=== PATIENT | male | born 1980 | race Caucasian/White ===

== ENCOUNTER → 2018-08-20 | Outpatient (CLI) | payer OTHER ==
[2014-11-01 12:31] VITALS: BP 125/77
[~2018-08-20] MED LIST: HYDR1TAB10 PO
[2018-08-20 09:25] LABS: BASO # 0.1 x10^3/uL (0.0-0.2); BASO % 1 % (0-3); EOS # 0.2 x10^3/uL (0.0-0.7); EOS % 2 % (0-3); HEMATOCRIT 47.7 % (39.0-53.0); HEMOGLOBIN 16.5 g/dL (13.0-17.5); LYMPH # 3.2 x10^3/uL (1.0-4.8); LYMPH % 35 % (24-48); MEAN CORPUSCULAR HEMOGLOBIN 30 pg (25-35); MEAN CORPUSCULAR HGB CONC 35 g/dL (31-37); MEAN CORPUSCULAR VOLUME 86 fL (79-100); MONO # 0.8 x10^3/uL (0.0-1.1); MONO % 9 % (0-9); NEUT # 4.9 x10^3uL (1.8-7.7); NEUT % 53 % (31-73); PLATELET COUNT 300 x10^3/uL (140-400); RED BLOOD COUNT 5.56 x10^6/uL (4.30-5.70); RED CELL DISTRIBUTION WIDTH 13.5 % (11.5-14.5); WHITE BLOOD COUNT 9.3 x10^3/uL (4.0-11.0)
[2018-08-20 09:31] LABS: ALBUMIN 3.9 g/dL (3.4-5.0); CALCIUM 9.2 mg/dL (8.5-10.1); GFR 83.2; TOTAL BILIRUBIN 0.9 mg/dL (0.2-1.0)
[2018-08-20 13:12] LABS: FREE T4 1.25 ng/dL (0.76-1.46); THYROID STIM HORMONE (TSH) 1.408 uIU/mL (0.358-3.740)
== END | disposition home or self-care (01) ==
LOC: LAB 08:38
PROVIDERS: ATTEND Family Medicine
DX: F32.0 Major depressive disorder, single episode, mild (principal); R10.13 Epigastric pain
CPT/HCPCS: 36415; 80053; 84439; 84443; 85025

== ENCOUNTER 2019-05-04 16:46 | Emergency (ER) | payer OTHER ==
[~2019-05-04] VITALS: Ht 182.9 cm; Wt 142.5 kg
[2019-05-04] MEDS ORDERED: ONDANSETRON PF 4 MG/2 ML VIAL. ONE (17:08)
[2019-05-04] MEDS ORDERED: IV NORMAL SALINE 1,000ML 1,000 ML IV ONE (17:15)
[2019-05-04] MEDS ORDERED: ONDANSETRON PF 4 MG/2 ML VIAL. IVP ONE (17:15)
[2019-05-04 17:46] LABS: BASO # 0.1 x10^3/uL (0.0-0.2); BASO % 1 % (0-3); EOS # 0.3 x10^3/uL (0.0-0.7); EOS % 4 % (0-3); HEMATOCRIT 47.2 % (39.0-53.0); HEMOGLOBIN 16.1 g/dL (13.0-17.5); LYMPH # 2.7 x10^3/uL (1.0-4.8); LYMPH % 34 % (24-48); MEAN CORPUSCULAR HEMOGLOBIN 30 pg (25-35); MEAN CORPUSCULAR HGB CONC 34 g/dL (31-37); MEAN CORPUSCULAR VOLUME 88 fL (79-100); MONO % 12 % (0-9); NEUT # 3.9 x10^3uL (1.8-7.7); NEUT % 50 % (31-73); PLATELET COUNT 278 x10^3/uL (140-400); RED BLOOD COUNT 5.37 x10^6/uL (4.30-5.70); RED CELL DISTRIBUTION WIDTH 13.7 % (11.5-14.5); WHITE BLOOD COUNT 7.9 x10^3/uL (4.0-11.0)
[2019-05-04 17:53] LABS: ALBUMIN 3.8 g/dL (3.4-5.0); ALBUMIN/GLOBULIN RATIO 0.9 (1.0-1.7); CALCIUM 9.3 mg/dL (8.5-10.1); GFR 83.2; POTASSIUM 3.8 mmol/L (3.5-5.1); TOTAL PROTEIN 7.9 g/dL (6.4-8.2)
--- NOTE | 2019-05-04 17:53 | PHYS DOC ---
Past History Past Medical History: Anxiety, Cancer, Depression, Other Additional Past Medical Histor: tumor in lung; insomia (CAROL URIBE DO) Past Surgical History: Other Additional Past Surgical Histo: ulvalaplasty for sleep apnea; thoracotomy right lung removed (CAROL URIBE DO) Alcohol Use: None Drug Use: None (CAROL URIBE DO) Smoking: Non-smoker (ROBLES HOLLAND DO) Adult General Chief Complaint Chief Complaint: NAUSEA/VOMITING/DIARRHEA HPI HPI 38-year-old male presents with nausea, vomiting, and diarrhea. He has had the symptoms for about 5 days. For the last year, the patient has had intermittent vomiting and diarrhea. He had an EGD done that did not show any abnormalities. It was determined that this could be related to stress. He usually has trouble for a few days and then it goes away. He presents tonight because he has also had chills. He has not measured a fever. He was also having significant cough until today that was productive of greenish sputum. 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 This was several years ago. His stools are very watery. He has generalized abdominal pain that is worse in the right lower quadrant. No history of abdominal surgery. (CAROL URIBE DO) Review of Systems Review of Systems Constitutional: Chills[] Eyes: Denies change in visual acuity, redness, or eye pain [] HENT: Denies nasal congestion or sore throat [] Respiratory: Denies cough or shortness of breath [] Cardiovascular: No additional information not addressed in HPI [] GI: Right lower quadrant abdominal pain, nausea, vomiting, diarrhea [] : Denies dysuria or hematuria [] Musculoskeletal: Denies back pain or joint pain [] Integument: Denies rash or skin lesions [] Neurologic: Denies headache, focal weakness or sensory changes [] Endocrine: Denies polyuria or polydipsia [] All other systems were reviewed and found to be within normal limits, except as documented in this note. (CAROL URIBE DO) Current Medications Current Medications Current Medications Medications (Trade) Dose Ordered Sig/Tim Start Time Stop Time Status Last Admin Dose Admin Ondansetron HCl (Zofran) 4 mg STK-MED ONCE 05/04/19 17:08 05/04/19 17:09 DC Sodium Chloride 1,000 ml @ 1,000 mls/hr 1X ONCE 05/04/19 17:15 05/04/19 18:14 05/04/19 17:17 1,000 MLS/HR (CAROL URIBE DO) Allergies Allergies Allergies Coded Allergies Type Severity Reaction Last Updated Verified acetaminophen Allergy Intermediate gi complaints 05/04/19 No oxycodone Allergy Intermediate gi complaints 05/04/19 No (CAROL URIBE DO) Physical Exam Physical Exam Constitutional: Well developed, obese, well nourished, no acute distress, non-toxic appearance. [] HENT: Normocephalic, atraumatic, bilateral external ears normal, oropharynx moist, no oral exudates, nose normal. [] Eyes: PERRLA, EOMI, conjunctiva normal, no discharge. [] Neck: Normal range of motion, no tenderness, supple, no stridor. [] Cardiovascular:Heart rate regular rhythm, no murmur [] Lungs & Thorax: Bilateral breath sounds clear to auscultation [] Abdomen: Bowel sounds normal, soft, moderate right lower quadrant tenderness with guarding, no masses, no pulsatile masses. [] Skin: Warm, dry, no erythema, no rash. [] Back: No tenderness, no CVA tenderness. [] Extremities: No tenderness, no cyanosis, no clubbing, ROM intact, no edema. [] Neurologic: Alert and oriented X 3, normal motor function, normal sensory function, no focal deficits noted. [] Psychologic: Affect normal, judgement normal, mood normal. [] (CAROL URIBE DO) Physical Exam Constitutional: Well developed, well nourished, no acute distress, non-toxic appearance HENT: Normocephalic, atraumatic, oropharynx moist Eyes: PERRL, EOMI, conjunctiva normal, no discharge Neck: Normal range of motion, no tenderness, supple, no meningeal signs Cardiovascular: Heart rate normal, regular rhythm Lungs & Thorax: Bilateral breath sounds diminished at bases R>L, no wheezing or rales Abdomen: Soft, no tenderness, no guarding/rebound tenderness/distention Skin: Warm, dry, no erythema, no rash Extremities: No tenderness, ROM intact, no edema Neurologic: Alert and oriented X 3, normal motor function, normal sensory function, no focal deficits noted Psychologic: Affect normal, judgement normal (HOLLAND,ROBLES R DO) Current Patient Data Vital Signs Vital Signs Date Time Temp Pulse Resp B/P (MAP) Pulse Ox O2 Delivery O2 Flow Rate FiO2 05/04/19 16:55 98.4 78 18 98 Room Air Lab Results Laboratory Tests Test 05/04/19 17:08 White Blood Count 7.9 x10^3/uL (4.0-11.0) Red Blood Count 5.37 x10^6/uL (4.30-5.70) Hemoglobin 16.1 g/dL (13.0-17.5) Hematocrit 47.2 % (39.0-53.0) Mean Corpuscular Volume 88 fL (79-100) Mean Corpuscular Hemoglobin 30 pg (25-35) Mean Corpuscular Hemoglobin Concent 34 g/dL (31-37) Red Cell Distribution Width 13.7 % (11.5-14.5) Platelet Count 278 x10^3/uL (140-400) Neutrophils (%) (Auto) 50 % (31-73) Lymphocytes (%) (Auto) 34 % (24-48) Monocytes (%) (Auto) 12 % (0-9) H Eosinophils (%) (Auto) 4 % (0-3) H Basophils (%) (Auto) 1 % (0-3) Neutrophils # (Auto) 3.9 x10^3uL (1.8-7.7) Lymphocytes # (Auto) 2.7 x10^3/uL (1.0-4.8) Monocytes # (Auto) 1.0 x10^3/uL (0.0-1.1) Eosinophils # (Auto) 0.3 x10^3/uL (0.0-0.7) Basophils # (Auto) 0.1 x10^3/uL (0.0-0.2) (CAROL URIBE DO) EKG EKG [] (CAROL URIBE DO) Radiology/Procedures Radiology/Procedures [] (CAROL URIBE DO) Radiology/Procedures PROCEDURE: CHEST PA & LATERAL Two-view chest dated 05/04/2019. No comparison available. Clinical data indication: Cough and fever for 5 days. FINDINGS: PA and lateral views obtained. Heart and mediastinal contours within normal limits. Elevation of right hemidiaphragm with surgical clips at the infrahilar region on the right. Mildly prominent linear markings at the perihilar regions. No consolidation or pleural effusion. No pneumothorax. IMPRESSION: 1. No evidence of focal pneumonia. 2. Prominent perihilar linear markings could be related to bronchial inflammatory process or scarring/atelectasis. 3. Status right lower lobectomy. Electronically signed by: Robles Fuentes MD (05/04/2019 6:45 PM) [facility] PROCEDURE: CT ABD PELV W/ IV CONTRST ONLY CT abdomen pelvis with contrast dated 05/04/2019. No comparison available. Clinical data indication: Right lower quadrant pain. TECHNIQUE: Contiguous axial imaging of the abdomen and pelvis performed after the administration of 75 cc Omnipaque 300. One or more of the following individualized dose reduction techniques were utilized for this examination: 1. Automated exposure control 2. Adjustment of the mA and/or kV according to patient size 3. Use of iterative reconstruction technique. FINDINGS: Limited images of lung bases show patchy airspace disease in the left lower lobe posterior medially. Evidence of prior right lower lobectomy with elevation of right hemidiaphragm. Heart size upper limits of normal. No pleural or pericardial effusion. Diffuse low-density of the liver, compatible with fatty infiltration. No apparent mass. Biliary tree normal in caliber. Gallbladder unremarkable. Spleen is normal in size. Pancreas, adrenal glands, gallbladder and kidneys are unremarkable. No hydronephrosis. Unopacified GI tract normal in caliber and contour. No focal bowel wall thickening. No inflammatory stranding in the mesentery. No ascites or lymphadenopathy. Abdominal aorta normal in caliber. Images of pelvis show nondistended urinary bladder. Prostate gland normal in size. No free fluid or lymphadenopathy. Bone windows show no acute findings. Multilevel spondylosis. IMPRESSION: 1. No acute abnormality of abdomen or pelvis. Normal appendix. 2. Subtle patchy airspace disease in the left lower lobe, suspicious for early pneumonia. Correlate clinically. 3. Mild fatty infiltration of the liver. Electronically signed by: Robles Fuentes MD (05/04/2019 6:49 PM) [facility] (ROBLES HOLLAND DO) Course & Med Decision Making Course & Med Decision Making Pertinent Labs and Imaging studies reviewed. (See chart for details) The patient's workup is pending. I'm signing the patient out at [address] Holland for further management and final disposition. [] (CAROL URIBE DO) Course & Med Decision Making Sign out received from Dr. Uribe for patient with abdominal pain and N/V. Also with history of cough. Patient pending CT imaging. Labs reviewed. Patient seen and evaluated by myself. CXR without acute process. CT abd/pelvis without surgical abnormality. Possible early pneumonia to LLL vs atelectasis. HENRY addressed. Symptomatic treatment provided. IVF hydration given. Patient stable for discharge with outpatient follow-up with PCP. Empiric antibiotic prescribed with instructions to watch and wait. Discussed findings a nd plan with patient and family, who acknowledge understanding and agreement. (ROBLES HOLLAND DO) Dragon Disclaimer Dragon Disclaimer This electronic medical record was generated, in whole or in part, using a voice recognition dictation system. (CAROL URIBE DO) Departure Departure: Impression: Primary Impression: Viral syndrome Additional Impressions: Headache Nausea vomiting and diarrhea Disposition: HOME, SELF-CARE Condition: STABLE Referrals: KIEL NUGENT MD (PCP) Patient Instructions: Diarrhea, [id number]-ol-[id number], Diet for Diarrhea, Adult, Headache, FAQs, Nausea and Vomiting, [id number], Viral Syndrome Additional Instructions: Hold antibiotics for 48 hours. If symptoms worsen or for fever > 100.3 F after 48 hours then start antibiotics as prescribed. Increase fluid hydration. Scripts Azithromycin (AZITHROMYCIN TABLET) 250 Mg Tablet 1 PKG PO UD for bronchitis, #6 TAB Take 2 tablets today and then one tablet every day thereafter for the next 4 days Prov: ROBLES HOLLAND DO 05/04/19 Butalb/Acetaminophen/Caffeine (JQLEEX-CAMMLAUH-SDXU 50-325-40) 1 Each Tablet 1 EACH PO Q6HRS PRN for HEADACHE, #14 TAB Prov: ROBLES HOLLAND DO 05/04/19 Ondansetron (ONDANSETRON ODT) 4 Mg Tab.rapdis 1 TAB PO PRN Q6-8HRS PRN for NAUSEA, #16 TAB Prov: ROBLES HOLLAND DO 05/04/19 Prednisone (PREDNISONE) 20 Mg Tablet 2 TAB PO DAILY for Bronchitis, #8 TAB Start this prescription tomorrow, 05/05/19 Prov: ROBLES HOLLAND DO 05/04/19 Problem Qualifiers Additional Impressions: Headache Headache type: unspecified Headache chronicity pattern: acute headache Intractability: not intractable Qualified Codes: R51 - Headache CAROL URIBE DO May 04, 2019 17:53 ROBLES HOLLAND DO May 04, 2019 18:56
[2019-05-04] MEDS ORDERED: IOHEXOL 300 MG/ML 75 ML VIAL. IV ONE (18:00)
--- NOTE | 2019-05-04 18:48 | RAD ---
Two-view chest dated 05/04/2019. No comparison available. Clinical data indication: Cough and fever for 5 days. FINDINGS: PA and lateral views obtained. Heart and mediastinal contours within normal limits. Elevation of right hemidiaphragm with surgical clips at the infrahilar region on the right. Mildly prominent linear markings at the perihilar regions. No consolidation or pleural effusion. No pneumothorax. IMPRESSION: 1. No evidence of focal pneumonia. 2. Prominent perihilar linear markings could be related to bronchial inflammatory process or scarring/atelectasis. 3. Status right lower lobectomy. Electronically signed by: Robles Fuentes MD (05/04/2019 6:45 PM) [facility]
--- NOTE | 2019-05-04 18:52 | RAD ---
CT abdomen pelvis with contrast dated 05/04/2019. No comparison available. Clinical data indication: Right lower quadrant pain. TECHNIQUE: Contiguous axial imaging of the abdomen and pelvis performed after the administration of 75 cc Omnipaque 300. One or more of the following individualized dose reduction techniques were utilized for this examination: 1. Automated exposure control 2. Adjustment of the mA and/or kV according to patient size 3. Use of iterative reconstruction technique. FINDINGS: Limited images of lung bases show patchy airspace disease in the left lower lobe posterior medially. Evidence of prior right lower lobectomy with elevation of right hemidiaphragm. Heart size upper limits of normal. No pleural or pericardial effusion. Diffuse low-density of the liver, compatible with fatty infiltration. No apparent mass. Biliary tree normal in caliber. Gallbladder unremarkable. Spleen is normal in size. Pancreas, adrenal glands, gallbladder and kidneys are unremarkable. No hydronephrosis. Unopacified GI tract normal in caliber and contour. No focal bowel wall thickening. No inflammatory stranding in the mesentery. No ascites or lymphadenopathy. Abdominal aorta normal in caliber. Images of pelvis show nondistended urinary bladder. Prostate gland normal in size. No free fluid or lymphadenopathy. Bone windows show no acute findings. Multilevel spondylosis. IMPRESSION: 1. No acute abnormality of abdomen or pelvis. Normal appendix. 2. Subtle patchy airspace disease in the left lower lobe, suspicious for early pneumonia. Correlate clinically. 3. Mild fatty infiltration of the liver. Electronically signed by: Robles Fuentes MD (05/04/2019 6:49 PM) [facility]
[2019-05-04] MEDS ORDERED: ONDA4TAB12 PO (19:13)
[2019-05-04] MEDS ORDERED: PRED20TA PO (19:13)
[2019-05-04] MEDS ORDERED: BUTA1TAB23 PO (19:13)
[2019-05-04] MEDS ORDERED: AZIT250T6 PO (19:13)
[2019-05-04] MEDS ORDERED: BUTALB/APAP/CAFEIN 50/325/40MG TABLET. PO ONE (19:30)
[2019-05-04] MEDS ORDERED: DEXAMETHASONE SOD PHOS 4 MG/ML VIAL IVP ONE (19:30)
[2019-05-04 19:32] VITALS: BP 116/55
== END 2019-05-04 19:42 | disposition home or self-care (01) ==
LOC: ER 16:46
DX: B34.9 Viral infection, unspecified (principal); R51 Headache; R11.2 Nausea with vomiting, unspecified; Z88.6 Allergy status to analgesic agent; Z88.5 Allergy status to narcotic agent
CPT/HCPCS: 36415; 71046; 74177; 80053; 83690; 85025; 96361; 96374; 96375; 99285; J1100; J2405; Q9967; J7030

== ENCOUNTER 2019-08-09 19:39 | Emergency (ER) | payer OTHER ==
[~2019-08-09] VITALS: Ht 180.3 cm; Wt 142.5 kg
[~2019-08-09 19:39] MED LIST changes: +AZIT250T6 PO; +BUTA1TAB23 PO; +ONDA4TAB12 PO; +PRED20TA PO
--- NOTE | 2019-08-09 19:44 | PHYS DOC ---
Past History Past Medical History: Anxiety, Cancer, Depression, Other Additional Past Medical Histor: tumor in lung; insomia Past Surgical History: Other Additional Past Surgical Histo: ulvalaplasty for sleep apnea; thoracotomy right lung removed Smoking: Non-smoker Alcohol Use: None Drug Use: None Adult General Chief Complaint Chief Complaint: ".. I just had my gallbaddler out this morning.. Dr. Younger.. did eat some pudding afterwards before going home.. but on way home I got to vomiting.. probably should have just come back into the building.. " HPI HPI Patient is a 39 year old male who presents with above hx and complaints of vomiting. Patient had cholecystectomy day with Dr. Younger at [facility]. Reports on the way home he developed nausea and vomiting. After nausea and vomiting patient developed some generalized abdomen pain. Pt. follow s with Dr. Unruly Nugent. Patient suture sites appear to be stable and no active bleeding. Patient continues to have some marked nausea. Patient did eat some putting before discharge from [facility]. Review of Systems Review of Systems Constitutional: Denies fever or chills [] Eyes: Denies change in visual acuity, redness, or eye pain [] HENT: Denies nasal congestion or sore throat [] Respiratory: Denies cough or shortness of breath [] Cardiovascular: No additional information not addressed in [facility] [] GI: Denies abdominal pain, nausea, vomiting, bloody stools or diarrhea [] : Denies dysuria or hematuria [] Musculoskeletal: Denies back pain or joint pain [] Integument: Denies rash or skin lesions [] Neurologic: Denies headache, focal weakness or sensory changes [] Endocrine: Denies polyuria or polydipsia [] All other systems were reviewed and found to be within normal limits, except as documented in this note. Family History Family History Noncontributory Current Medications Current Medications See nursing for home meds Allergies Allergies Allergies Coded Allergies Type Severity Reaction Last Updated Verified acetaminophen Allergy Intermediate gi complaints 05/04/19 No oxycodone Allergy Intermediate gi complaints 05/04/19 No Physical Exam Physical Exam Constitutional: Moderate acute distress, non-toxic appearance. [] HENT: Normocephalic, atraumatic, bilateral external ears normal, oropharynx dry,, no oral exudates, nose normal. [] Eyes: PERRLA, EOMI, conjunctiva normal, no discharge. [] Neck: Normal range of motion, no tenderness, supple, no stridor. [] Cardiovascular: Tachycardia Heart rate regular rhythm, no murmur [] Lungs & Thorax: Bilateral breath sounds equal apex with scattered wheezes and some basilar crackles auscultation . Did have more crackles on posterior lung [place] on right base. Old surgery scar on Rt. Abdomen: Bowel sounds decreased, soft, generalized tenderness, no masses, no pulsatile masses. [] Suture sites appear to be stable and no active bleeding. No focal findings on rebound. Morbidly obese. Tympanic Skin: Warm, dry, no erythema, no rash. [] Back: No tenderness, no CVA tenderness. [] Extremities: No tenderness, no cyanosis, no clubbing, ROM intact, no edema. [] No psoas sign. Neurologic: Alert and oriented X 3, normal motor function, normal sensory function, no focal deficits noted. [] Psychologic: Affect anxious, judgement normal, mood normal. [] EKG EKG My interpretation EKG shows a sinus rhythm at 85 bpm. No findings acute STEMI with contralateral changes.[] Radiology/Procedures Radiology/Procedures [[address] [address] IMAGING REPORT Signed PATIENT: ERIN MONTIEL: [id number] : 1980 LOCATION: ER AGE: 39 SEX: M EXAM STATUS: REG ER ORD. PHYSICIAN: VITO REECE MD REASON: post cholecysectomy, nausea, vomiting, severe rt sided abd pain PROCEDURE: CT ABD PELV W/ORAL&IV CONTRAST PQRS Compliance Statement: One or more of the following individualized dose reduction techniques were utilized for this examination: 1. Automated exposure control 2. Adjustment of the mA and/or kV according to patient size 3. Use of iterative reconstruction technique CT ABD PELV W/ORAL IV CONTRAST Clinical Indication: Post cholecystectomy, nausea vomiting, severe pain right side. Comparison: CT abdomen and pelvis with contrast May 04, 2019. Technique: Helical CT imaging of the abdomen and pelvis is performed after 75 cc of Omnipaque 300 IV contrast. Oral contrast also given. Findings: Postsurgical change in the right lung. Moderate elevation of right hemidiaphragm. Atelectasis in the posterior left lower lobe. Cardiac size normal. There is minimal intraperitoneal free air compatible with the provided history. There is fatty infiltration of the liver. Cholecystectomy clips. No fluid collection or unexpected induration in the gallbladder fossa. The spleen, pancreas, adrenal glands, and abdominal aorta are normal. Kidneys enhance symmetrically, no hydronephrosis. There are multiple unchanged subcentimeter retroperitoneal lymph nodes. Stomach unremarkable. There is no dilated small bowel. Distal colon is decompressed, limiting evaluation. No colon wall thickening is seen. The appendix is normal. Oral contrast reaches the colon, there is no small bowel obstruction. Mild induration of the central mesentery is nonspecific. No intraperitoneal fluid collection. Subcutaneous induration at the umbilicus is likely postsurgical. Stable tiny soft tissue nodule in the left lower abdomen subcutaneous fat, image 78. Urinary bladder is not well distended, otherwise normal. Prostate and seminal vesicles are normal. Subcentimeter bilateral inguinal lymph nodes. Mild grade 1 anterolisthesis of L5 on S1. There is no spondylolysis. Minimal grade 1 retrolisthesis of L4 on L5. IMPRESSION: 1. No acute abdominal or pelvic abnormality. 2. Post cholecystectomy. There is no gallbladder fossa fluid collection or unexpected induration. Minimal intraperitoneal free air. 3. Fatty infiltration of the liver. Electronically signed by: Nik Angeles MD (08/09/2019 11:07 PM) [id number] DICTATED AND SIGNED BY: NIK ANGELES MD DATE: 08/09/192306 CC: VITO REECE MD; KIEL NUGENT MD ~ ][address] [address] IMAGING REPORT Signed PATIENT: ERIN MONTIEL MACCOUNT: [id number] : 1980 LOCATION: ER AGE: 39 SEX: M EXAM STATUS: PRE ER ORD. PHYSICIAN: VITO REECE MD REASON: Cholecystectomy today, severe rt sided abd radiating into testicl PROCEDURE: ACUTE ABDOMEN SERIES Three-view acute abdominal series. HISTORY: Cholecystectomy today, right-sided abdominal pain 3 views were taken for an acute abdominal series. There is elevation of the right diaphragm. There are changes from surgery in the right chest. There are no acute infiltrates. There is no pneumothorax or pleural effusion. There are clips from a cholecystectomy. There is contrast in the right colon. There is no small bowel obstruction. There is no free air on the upright view the abdomen. There are multiple phleboliths in the pelvis. A ureteral calculus is not identified. IMPRESSION: 1. Contrast in the terminal ileum and right colon without bowel obstruction. 2. Multiple phleboliths in the pelvis. 3. Elevated right diaphragm. 4. Previous surgery right lung base. Electronically signed by: Garrett Chris MD (08/09/2019 8:31 PM) [id number] DICTATED AND SIGNED BY: GARERTT CHRIS MD DATE: 08/09/192030 CC: VITO REECE MD; KIEL NUGENT Course & Med Decision Making Course & Med Decision Making Pertinent Labs and Imaging studies reviewed. (See chart for details) Patient must stay on a clear fluid diet for the next 24-48 hours. No solids or milk products. Clear fluids only to allow bowel rest. Take Zofran 8 mg up to 4 times a day for active vomiting. Continue deep breathing exercises. Return if any concerns. Pain meds as previously directed. Frequent sips of fluid. Pt. keep surgical follow-up appointment with Dr. Younger. Encouraged patient not to smoke. Marijuana. Impression: 1. Nausea and Vomiting post cholecystectomy 2. Dehydration 3.Status post cholecystectomy- today 4. Morbid Obesity 5. Tobacco and marijuana use. [] Dragon Disclaimer Dragon Disclaimer This electronic medical record was generated, in whole or in part, using a voice recognition dictation system. Departure Departure: Disposition: 01 HOME/RESIDENCE PRIOR TO ADM Condition: STABLE Referrals: KIEL NUGENT MD (PCP) Scripts Ondansetron Hcl (ZOFRAN) 8 Mg Tablet 8 MG PO QIDPRN PRN for for active vomiting, #30 BOTTLE Prov: VITO REECE MD 08/10/19 Coby Disclaimer This chart was dictated in whole or in part using Voice Recognition software in a busy, high-work load, and often noisy Emergency Department environment. It may contain unintended and wholly unrecognized errors or omissions. Dragon Disclaimer This chart was dictated in whole or in part using Voice Recognition software in a busy, high-work load, and often noisy Emergency Department environment. It may contain unintended and wholly unrecognized errors or omissions. Dragon Disclaimer This chart was dictated in whole or in part using Voice Recognition software in a busy, high-work load, and often noisy Emergency Department environment. It may contain unintended and wholly unrecognized errors or omissions. VITO REECE MD Aug 09, 2019 19:44
[2019-08-09] MEDS ORDERED: IV RINGERS SOLUTION,LACTATED 1,000 ML IV SCH (19:46)
[2019-08-09] MEDS ORDERED: FAMOTIDINE 20 MG/2 ML VIAL IVP ONE ×2 (20:00→20:15)
[2019-08-09 20:08] LABS: BASO % 0 % (0-3); EOS % 0 % (0-3); HEMATOCRIT 48.3 % (39.0-53.0); HEMOGLOBIN 16.1 g/dL (13.0-17.5); LYMPH # 1.2 x10^3/uL (1.0-4.8); LYMPH % 10 % (24-48); MEAN CORPUSCULAR HEMOGLOBIN 30 pg (25-35); MEAN CORPUSCULAR HGB CONC 33 g/dL (31-37); MEAN CORPUSCULAR VOLUME 88 fL (79-100); MONO # 0.2 x10^3/uL (0.0-1.1); MONO % 1 % (0-9); NEUT # 11.2 x10^3uL (1.8-7.7); NEUT % 89 % (31-73); PLATELET COUNT 303 x10^3/uL (140-400); RED BLOOD COUNT 5.46 x10^6/uL (4.30-5.70); RED CELL DISTRIBUTION WIDTH 13.2 % (11.5-14.5); WHITE BLOOD COUNT 12.6 x10^3/uL (4.0-11.0)
[2019-08-09] MEDS ORDERED: KETOROLAC 30 MG/ML VIAL. IVP ONE (20:15)
[2019-08-09] MEDS ORDERED: ONDANSETRON PF 4 MG/2 ML VIAL. IVP ONE ×2 (20:15→21:30)
[2019-08-09 20:20] LABS: CALCIUM 9.2 mg/dL (8.5-10.1); CREATININE 1.2 mg/dL (0.7-1.3); GFR 67.1; POTASSIUM 3.9 mmol/L (3.5-5.1)
[2019-08-09 20:25] LABS: DIRECT BILIRUBIN 0.2 mg/dL (0.0-0.2); TOTAL BILIRUBIN 0.9 mg/dL (0.2-1.0); TOTAL PROTEIN 7.6 g/dL (6.4-8.2)
--- NOTE | 2019-08-09 20:35 | RAD ---
Three-view acute abdominal series. HISTORY: Cholecystectomy today, right-sided abdominal pain 3 views were taken for an acute abdominal series. There is elevation of the right diaphragm. There are changes from surgery in the right chest. There are no acute infiltrates. There is no pneumothorax or pleural effusion. There are clips from a cholecystectomy. There is contrast in the right colon. There is no small bowel obstruction. There is no free air on the upright view the abdomen. There are multiple phleboliths in the pelvis. A ureteral calculus is not identified. IMPRESSION: 1. Contrast in the terminal ileum and right colon without bowel obstruction. 2. Multiple phleboliths in the pelvis. 3. Elevated right diaphragm. 4. Previous surgery right lung base. Electronically signed by: Garrett Chris MD (08/09/2019 8:31 PM) [id number]
[2019-08-09] MEDS ORDERED: MORPHINE SULFATE 10 MG/ML SYRINGE. SQ ONE (21:30)
[2019-08-09 21:54] LABS: BACTERIA,URINE 0 /HPF (0-FEW); BARBITURATES NEG (NEG); BENZODIAZEPINES POS (NEG); BILIRUBIN,URINE NEG (NEG); CANNABINOIDS POS (NEG); CLARITY,URINE CLEAR; COCAINE NEG (NEG); COLOR,URINE AMBER; GLUCOSE,URINE NEG (NEG); HYALINE CASTS, URINE OCC /HPF; METHADONE NEG (NEG); NITRITE,URINE NEG (NEG); OPIATES POS (NEG); PHENCYCLIDINE NEG (NEG); SQUAMOUS EPITHELIAL CELL,UR OCC /LPF; UROBILINOGEN,URINE 0.2 mg/dL (0.2 mg/dL); WBC,URINE OCC /HPF (0-4)
[2019-08-09 21:59] LABS: AMPHETAMINE/METHAMPHETAMINE NEG (NEG)
[2019-08-09] MEDS ORDERED: IV RINGERS SOLUTION,LACTATED 1,000 ML IV ONE (22:00)
[2019-08-09] MEDS ORDERED: IOHEXOL 300 MG/ML 75 ML VIAL. IV ONE (22:00)
[2019-08-09] MEDS ORDERED: diphenhydrAMINE 50 MG/ML VIAL IVP ONE (22:00)
[2019-08-09] MEDS ORDERED: PROCHLORPERAZINE 10 MG/2 ML VIAL. IV ONE (22:00)
[2019-08-09] MEDS ORDERED: IOHEXOL 240 MG/ML 50ML VIAL. PO ONE (22:00)
--- NOTE | 2019-08-09 23:10 | RAD ---
PQRS Compliance Statement: One or more of the following individualized dose reduction techniques were utilized for this examination: 1. Automated exposure control 2. Adjustment of the mA and/or kV according to patient size 3. Use of iterative reconstruction technique CT ABD PELV W/ORAL IV CONTRAST Clinical Indication: Post cholecystectomy, nausea vomiting, severe pain right side. Comparison: CT abdomen and pelvis with contrast May 04, 2019. Technique: Helical CT imaging of the abdomen and pelvis is performed after 75 cc of Omnipaque 300 IV contrast. Oral contrast also given. Findings: Postsurgical change in the right lung. Moderate elevation of right hemidiaphragm. Atelectasis in the posterior left lower lobe. Cardiac size normal. There is minimal intraperitoneal free air compatible with the provided history. There is fatty infiltration of the liver. Cholecystectomy clips. No fluid collection or unexpected induration in the gallbladder fossa. The spleen, pancreas, adrenal glands, and abdominal aorta are normal. Kidneys enhance symmetrically, no hydronephrosis. There are multiple unchanged subcentimeter retroperitoneal lymph nodes. Stomach unremarkable. There is no dilated small bowel. Distal colon is decompressed, limiting evaluation. No colon wall thickening is seen. The appendix is normal. Oral contrast reaches the colon, there is no small bowel obstruction. Mild induration of the central mesentery is nonspecific. No intraperitoneal fluid collection. Subcutaneous induration at the umbilicus is likely postsurgical. Stable tiny soft tissue nodule in the left lower abdomen subcutaneous fat, image 78. Urinary bladder is not well distended, otherwise normal. Prostate and seminal vesicles are normal. Subcentimeter bilateral inguinal lymph nodes. Mild grade 1 anterolisthesis of L5 on S1. There is no spondylolysis. Minimal grade 1 retrolisthesis of L4 on L5. IMPRESSION: 1. No acute abdominal or pelvic abnormality. 2. Post cholecystectomy. There is no gallbladder fossa fluid collection or unexpected induration. Minimal intraperitoneal free air. 3. Fatty infiltration of the liver. Electronically signed by: Nik Angeles MD (08/09/2019 11:07 PM) [id number]
[2019-08-10] MEDS ORDERED: ONDA8TAB9 PO (01:00)
[2019-08-10 01:32] VITALS: BP 130/75
--- NOTE | 2019-08-10 02:28 | EKG ---
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
== END 2019-08-10 01:35 | disposition home or self-care (01) ==
LOC: ER 19:39
DX: E86.0 Dehydration (principal); E66.01 Morbid (severe) obesity due to excess calories; F12.10 Cannabis abuse, uncomplicated; Z68.41 Body mass index [BMI] 40.0-44.9, adult; Z90.49 Acquired absence of other specified parts of digestive tract; Z88.5 Allergy status to narcotic agent; Z88.8 Allergy status to other drugs, medicaments and biological substances; Z72.0 Tobacco use
CPT/HCPCS: 36415; 74022; 74177; 80048; 80076; 80307; 81001; 82150; 82550; 83690; 84484; 85025; 85610; 85730; 93005; 96361; 96372; 96374; 96375; 96376; 99285; J0780; J1200; J1885; J2270; J2405; J3490; J7120; Q9966; Q9967

== ENCOUNTER → 2020-02-14 | Outpatient (CLI) | payer OTHER ==
[~2020-02-14] MED LIST changes: +ONDA8TAB9 PO
[2020-02-14 14:00] LABS: ALBUMIN 3.7 g/dL (3.4-5.0); ALBUMIN/GLOBULIN RATIO 0.9 (1.0-1.7); CALCIUM 9.3 mg/dL (8.5-10.1); CREATININE 1.2 mg/dL (0.7-1.3); GFR 67.1; TOTAL BILIRUBIN 0.5 mg/dL (0.2-1.0); TOTAL PROTEIN 7.8 g/dL (6.4-8.2)
[2020-02-14 14:12] LABS: BASO % 1 % (0-3); EOS # 0.2 x10^3/uL (0.0-0.7); EOS % 2 % (0-3); HEMATOCRIT 45.8 % (39.0-53.0); HEMOGLOBIN 15.5 g/dL (13.0-17.5); LYMPH # 2.6 x10^3/uL (1.0-4.8); LYMPH % 33 % (24-48); MEAN CORPUSCULAR HEMOGLOBIN 30 pg (25-35); MEAN CORPUSCULAR HGB CONC 34 g/dL (31-37); MEAN CORPUSCULAR VOLUME 89 fL (79-100); MONO # 0.7 x10^3/uL (0.0-1.1); MONO % 9 % (0-9); NEUT # 4.4 x10^3uL (1.8-7.7); NEUT % 56 % (31-73); PLATELET COUNT 301 x10^3/uL (140-400); RED BLOOD COUNT 5.15 x10^6/uL (4.30-5.70); WHITE BLOOD COUNT 7.9 x10^3/uL (4.0-11.0)
--- NOTE | 2020-02-14 16:03 | RAD ---
4 views left femur 02/14/2020 12:00 AM Indication: Reason: LEFT KNEE PAIN / Spl. Instructions: / History: Comparison: None Findings: There is no acute fracture or dislocation. Articular surfaces are uninterupted and smooth. Soft tissues are unremarkable. There is a pedunculated lesion arising from the medial aspect of the proximal fibula likely a small osteochondroma. Impression: 1. Probable small osteochondroma arising from the proximal fibula 2. Otherwise no evidence of acute osseous abnormality. Electronically signed by: William Bah MD (02/14/2020 4:00 PM) [id number]
== END | disposition home or self-care (01) ==
LOC: LAB 12:05
PROVIDERS: ATTEND Family Medicine
DX: E55.9 Vitamin D deficiency, unspecified (principal); K76.0 Fatty (change of) liver, not elsewhere classified; Z13.220 Encounter for screening for lipoid disorders; Z78.9 Other specified health status
CPT/HCPCS: 36415; 73564; 80053; 80061; 82306; 85025

== ENCOUNTER 2020-12-30 03:01 | Emergency (ER) | payer OTHER ==
[~2020-12-30] VITALS: Ht 180.3 cm; Wt 142.5 kg
--- NOTE | 2020-12-30 03:03 | PHYS DOC ---
Past History Past Medical History: Anxiety, Cancer, Depression, Other Additional Past Medical Histor: tumor in lung; insomia Past Surgical History: Cholecystectomy, Other Additional Past Surgical Histo: ulvalaplasty for sleep apnea; thoracotomy right lung removed Smoking: Non-smoker Alcohol Use: None Drug Use: None General Adult HPI: HPI: ". .. I was eating some chicken ...and got choked on some the food particles.. and I can't stop coughing.. I had this once before.. and I got choked on some lettuce..." Patient is a 48 year old male who presents with above hx and complaints of choking on food.. Patient reports he was eating chicken at the time he felt like it got choked on some food particles. Patient has had this problem in the past where he aspirated small particles. Time of initial incident was approximately 2200 hrs. patient was able to eat afterwards. Patient however has had somewhat of a persistent laying cough. 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 History of insomnia, history of sleep apnea, morbid obesity, and hypertension. Besides the resection of right middle and lower lobe of lung he also has had surgery for uvuloplasty, cholecystectomy,. No recent travel. No specific ill contacts. Has a history of trauma. Pt. follows with Dr. Nugent Review of Systems: Review of Systems: Constitutional: Denies fever or chills Eyes: Denies change in visual acuity HENT: Denies nasal congestion or sore throat Respiratory: Denies cough or shortness of breath Cardiovascular: Denies chest pain or edema GI: Denies abdominal pain, nausea, vomiting, bloody stools or diarrhea : Denies dysuria Musculoskeletal: Denies back pain or joint pain Integument: Denies rash Neurologic: Denies headache, focal weakness or sensory changes Endocrine: Denies polyuria or polydipsia Lymphatic: Denies swollen glands Psychiatric: Denies depression or anxiety Family History: Family History: Noncontributory to presentation Current Medications: Current Meds: See nursing for home meds Allergies: Allergies: Allergies Coded Allergies Type Severity Reaction Last Updated Verified acetaminophen Allergy Intermediate gi complaints 05/04/19 No oxycodone Allergy Intermediate gi complaints 05/04/19 No Physical Exam: PE: Constitutional: Mild distress, non-toxic appearance. [] HENT: Normocephalic, atraumatic, bilateral external ears normal, oropharynx moist, no oral exudates, nose normal. Surgical removal of uvula and tonsillar pillars Eyes: PERRLA, EOMI, conjunctiva normal, no discharge. [] Neck: Normal range of motion, no tenderness, supple, no stridor. [] Cardiovascular:Heart rate regular rhythm, no murmur [] PMI slightly to the left Lungs & Thorax: Bilateral breath sounds equal apex with few scattered wheezes on auscultation [] resection scar right chest wall, occasional cough Abdomen: Bowel sounds normal, soft, no tenderness, no masses, no pulsatile masses. Morbidly obese Skin: Warm, dry, no erythema, no rash. [] Back: No tenderness, no CVA tenderness. [] Extremities: No tenderness, no cyanosis, no clubbing, ROM intact, no edema. No cording appreciated Neurologic: Alert and oriented X 3, normal motor function, normal sensory function, no focal deficits noted. [] Psychologic: Affect n anxious, judgement normal, mood normal. [] EKG: EKG: [] Radiology/Procedures: Radiology/Procedures: [] Heart Score: C/O Chest Pain: N/A Risk Factors: Risk Factors: DM, Current or recent (<one month) smoker, HTN, HLP, family history of CAD, obesity. Risk Scores: Score 0 - 3: 2.5% MACE over next 6 weeks - Discharge Home Score 4 - 6: 20.3% MACE over next 6 weeks - Admit for Clinical Observation Score 7 - 10: 72.7% MACE over next 6 weeks - Early Invasive Strategies Course & Med Decision Making: Course & Med Decision Making Pertinent Labs and Imaging studies reviewed. (See chart for details)' Patient received DuoNeb treatments. The patient eventually coughed up a small piece size piece of chicken. Patient reported symptoms resolved. Patient instructed to be very careful when eating. Patient informed that frequently people that have extensive sleep apnea surgery for upper airway obstruction sometimes have difficulty initiating the swallow mechanism. Patient dysphagia issues and aspiration become persistent or progressive. Consider swallow studies. Follow-up primary care. Return if any concerns. Impression: 1. Aspiration [] Coby Disclaimer: Coby Disclaimer: This electronic medical record was generated, in whole or in part, using a voice recognition dictation system. Departure Departure: Referrals: KIEL NUGENT MD (PCP) Coby Disclaimer This chart was dictated in whole or in part using Voice Recognition software in a busy, high-work load, and often noisy Emergency Department environment. It may contain unintended and wholly unrecognized errors or omissions. VITO REECE MD Dec 30, 2020 03:03
[2020-12-30] MEDS: IPRATRPIUM/ALBUTEROL 0.5/2.5MG 3 ML NEBU. NEB ONE (03:18)
[2020-12-30] MEDS: ALBUTEROL SULFATE 8GM INHALER. INH ONE (03:45)
--- NOTE | 2020-12-30 04:36 | RAD ---
XR CHEST 2V INDICATION: apirated some foods COMPARISON STUDY: 08/09/2019. FINDINGS: Lungs: Normal lung volume. No pulmonary mass or consolidation. Surgical clips overlying the hemithora x. The tracheobronchial tree and hilar structures are normal. Pleura: No pleural effusion or pneumothorax. Heart and Mediastinum: The cardiomediastinal silhouette is normal. The great vessels of the thorax ar e normal. IMPRESSION: No consolidation. Stable surgical clips overlying the right hemithorax. No new radiopaque foreign body. Electronically signed by: Paxton Barragan MD (12/30/2020 4:33 AM) [facility]
[2020-12-30 05:00] VITALS: BP 142/91
== END 2020-12-30 05:12 | disposition home or self-care (01) ==
LOC: ER 03:01
DX: T17.920A Food in respiratory tract, part unspecified causing asphyxiation, initial encounter (principal); R05 Cough; Z90.49 Acquired absence of other specified parts of digestive tract; Z88.5 Allergy status to narcotic agent; Z88.6 Allergy status to analgesic agent; X58.XXXA Exposure to other specified factors, initial encounter; Y93.89 Activity, other specified; Y92.89 Other specified places as the place of occurrence of the external cause; Y99.8 Other external cause status
CPT/HCPCS: 71046; 94640; 94664; 99285-25

== ENCOUNTER 2021-06-09 19:26 | Emergency (ER) | payer OTHER ==
[~2021-06-09] VITALS: Ht 180.3 cm; Wt 166.6 kg
--- NOTE | 2021-06-09 20:12 | PHYS DOC ---
Past History Past Medical History: Anxiety, Cancer, Depression, Other Additional Past Medical Histor: tumor in lung; insomia; sleep apnea Past Surgical History: Cholecystectomy, Other Additional Past Surgical Histo: ulvuloplasty for sleep apnea; thoracotomy right lung removed-middle and low Smoking: Non-smoker Alcohol Use: None Drug Use: None Adult General HPI HPI Patient is a 40-year-old male, who presents with 2 days of cough, and congestion with body aches and fatigue. States he did not take any medicines today. 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 Denies any recent traumas, travels, fevers, chest pain, shortness of breath, abdominal pain, nausea, vomiting, diarrhea. Review of Systems Review of Systems Review of systems otherwise unremarkable except noted in HPI Allergies Allergies Allergies Coded Allergies Type Severity Reaction Last Updated Verified acetaminophen Adverse Reaction Intermediate Nausea and Vomiting 12/30/20 No oxycodone Adverse Reaction Intermediate Nausea and Vomiting 12/30/20 No Physical Exam Physical Exam Constitutional: Well developed, well nourished, no acute distress, non-toxic appearance. [] HENT: Normocephalic, atraumatic, bilateral external ears normal, oropharynx moist, no oral exudates, nose normal. [] Eyes: conjunctiva normal, no discharge. [] Neck: Normal range of motion, no tenderness, supple, no stridor. [] Cardiovascular:Heart rate regular rhythm, no murmur [] Lungs & Thorax: Bilateral breath sounds clear to auscultation [] Abdomen: Bowel sounds normal, soft, no tenderness, no masses, no pulsatile masses. [] Skin: Warm, dry, no erythema, no rash. [] Back: No tenderness, no CVA tenderness. [] Extremities: No tenderness, no cyanosis, no clubbing, ROM intact, no edema. [] Neurologic: Alert and oriented X 3, normal motor function, normal sensory function, no focal deficits noted. [] Psychologic: Affect normal, judgement normal, mood normal. [] EKG EKG [] Radiology/Procedures Radiology/Procedures [] Heart Score C/O Chest Pain: No Risk Factors: Risk Factors: DM, Current or recent (<one month) smoker, HTN, HLP, family history of CAD, obesity. Risk Scores: Risk Factors: DM, Current or recent (<one month) smoker, HTN, HLP, family history of CAD, obesity. Course & Med Decision Making Course & Med Decision Making Patient is a 40-year-old male presents with productive cough and congestion with body aches and fatigue Vital signs notable for tachycardia. Physical exam noted above. Given cough medicine. Given pain medicine. Imaging with no obvious consolidative or atypical pneumonia. Discussed all findings with family. Discussed symptom management at home. Advised on Covid quarantine and given Covid education. Advised to follow-up Friday with primary care physician. Gave strict return precautions to the ED. Family grateful, verbalized understanding and agreed with plan of discharge. [] Dragon Disclaimer Dragon Disclaimer This electronic medical record was generated, in whole or in part, using a voice recognition dictation system. Departure Departure: Impression: Primary Impression: Viral syndrome Disposition: HOME / SELF CARE / HOMELESS Condition: GOOD Referrals: KIEL NUGENT MD (PCP) Patient Instructions: Viral Syndrome Additional Instructions: You have been tested for or diagnosed with COVID-19. It is an infection caused by a new type of coronavirus. COVID-19 will cause cold-like or mild flu symptoms in most. It can cause more severe symptoms like problems breathing in some. There is no treatment for COVID-19. The body will clear the infection over time. Self-care will help to ease discomfort. Steps to Take: Self-Care Rest as needed. Healthy habits may help you feel better. Steps include: Choose healthy foods including fruits and vegetables. Drink water throughout the day. Get plenty of sleep each night. If you smoke, try to quit. It may ease breathing. Avoid alcohol. Keep Others Healthy The virus can spread to others. Droplets are released every time you sneeze or cough. The droplets can get into the mouth, nose, or eyes of people near you and lead to infection. To lower the chances of spreading COVID-19 to others: Stay at home until your doctor has said it is safe to leave. If you tested positive this will mean staying isolated until both of the following are true: At least 7 days have passed since the start of illness. You are free of fever for at least 72 hours without the use of medicine. During this time: - Avoid public areas, events, or transportation. Do not return to work or school until your doctor has said it is safe to do so. - Call ahead if you need to go to a medical center. Let them know you may have COVID-19. It will help them guide you where to go. They may also ask you to wear a facemask when you come to the office. - If you call for emergency medical services, let them know you may have COVID- 19. While at home: - Try to avoid close contact with others. Stay about 6 feet away. - If possible, spend most of your time in a separate room from others. - Use a face mask if you will be in close contact with others such as sharing a room or vehicle. - Have someone wipe down common surfaces in the home. Use household electric shipyard operator every day on areas like doorknobs, counters, or sinks. - Cough or sneeze into a tissue. Throw the tissue away right after use. If a tissue is not available, cough or sneeze into your elbow. - Wash your hands often. Wash them after sneezing or coughing. Use soap and water and wash for at least 20 seconds. Alcohol based hand tuckpointer cleaner caulker can be used if soap and leopoldo er is not available. - Do not prepare food for others. Avoid sharing personal items like forks, spoons, or toothbrushes. - Avoid close contact with pets while you are sick. There is no evidence of the virus passing to pets. This is a safety step until more is known about this virus. Isolation can be frustrating. Social interaction can help. Keep in touch with friends and family through phone and tech options. You can still interact with others in your home, just keep a safe distance of about 6 feet. Follow-up: Your doctors office will check in with you to see if there are any changes in your health. You may be asked to keep track of symptoms to share with them. They will also let you know when you are clear to be in public again. Problems to Look Out For: Contact your doctor if your recovery is not going as you expect. Get emergency care if you have problems such as: - Trouble breathing - Nonstop chest pain or pressure - Changes in awareness, confusion, or problems waking - Lips or face have bluish color - Worsening of symptoms If you think you have an emergency, call for emergency medical services right away. As taken from [facility] [place] Barak [facility] INSTITUTEWOJCIECH VELÁSQUEZ MD Jun 09, 2021 20:12
[2021-06-09] MEDS ORDERED: IBUPROFEN 600 MG TABLET. PO ONE (20:15)
[2021-06-09] MEDS ORDERED: ACETAMINOPHEN 500 MG TABLET PO ONE (20:15)
[2021-06-09] MEDS ORDERED: guaiFENesin/CODEINE 100mg/10mg 5 ML LIQUID PO PRN (20:15)
[2021-06-09] MEDS ORDERED: guaiFENesin/CODEINE 100mg/10mg 5 ML LIQUID PO ONE (20:30)
[2021-06-09] MEDS ORDERED: vitaminD PO (20:31)
[2021-06-09] MEDS ORDERED: MULT-766 PO (20:31)
[2021-06-09 21:00] VITALS: BP 141/90
[2021-06-09 21:00] LABS: INFLUENZA A PATIENT NEGATIVE (NEGATIVE); INFLUENZA B PATIENT NEGATIVE (NEGATIVE)
--- NOTE | 2021-06-09 21:50 | RAD ---
XR CHEST 1V 06/09/2021 8:16 PM INDICATION: Cough, headache COMPARISON: 12/30/2020 TECHNIQUE: Portable frontal view of the chest is provided. FINDINGS: The cardiomediastinal silhouette is similar in appearance. Lungs are clear. Right infrahilar post starla gical changes are present. There is chronic elevation the right hemidiaphragm. There are no significant pleural effusions. There is no pulmonary vascular congestion. No pneumothora x. No suspicious osseous abnormality. IMPRESSION: There is no acute cardiopulmonary process. Electronically signed by: Clotilde Erwin MD (06/09/2021 9:47 PM) [facility]
== END 2021-06-09 21:10 | disposition home or self-care (01) ==
LOC: ER 19:26
DX: B34.9 Viral infection, unspecified (principal); Z20.822 Contact with and (suspected) exposure to COVID-19; Z90.49 Acquired absence of other specified parts of digestive tract
CPT/HCPCS: 71045; 87804; 99284; C9803; U0003

== ENCOUNTER 2021-11-10 19:16 | Emergency (ER) | payer OTHER ==
[~2021-11-10] VITALS: Ht 180.3 cm; Wt 166.6 kg
[~2021-11-10 19:16] MED LIST changes: +MULT-766 PO; +vitaminD PO
[2021-11-10] MEDS ORDERED: ONDANSETRON PF 4 MG/2 ML VIAL. ONE (20:12)
[2021-11-10] MEDS ORDERED: FAMOTIDINE 20 MG/2 ML VIAL ONE (20:12)
--- NOTE | 2021-11-10 20:27 | PHYS DOC ---
Past History Past Medical History: Anxiety, Cancer, Depression, Cyclic Vomiting, Other Additional Past Medical Histor: tumor in lung; insomia; sleep apnea, CHRONIC NAUSEA Past Medical History Cyclic vomiting Past Surgical History: Cancer Surgery, Cholecystectomy, Tonsillectomy, Other Additional Past Surgical Histo: ulvuloplasty for sleep apnea; thoracotomy right lung removed-middle and low Smoking: Non-smoker Alcohol Use: None Drug Use: None General Adult EDM: Chief Complaint: NAUSEA/VOMITING/DIARRHEA HPI: HPI: ".. I ve had nausea and vomiting all day... and diarrhea .. now.." Patient is a 41 year old male who presents with above history and complaints of nausea and vomiting. Patient denies any intake of bad food. No recent travel. No specific ill contacts. No history of trauma. No history immunosuppression. Patient normally healthy. Patient has not had flu vaccination or COVID vaccination. Patient has significant past medical history of lung resection for tumor, prior episodes of cyclic vomiting, sleep apnea, cholecystectomy and depression.. Patient follows with Dr. Kiel Nugent for care. Review of Systems: Review of Systems: Constitutional: Denies fever or chills Eyes: Denies change in visual acuity HENT: Denies nasal congestion or sore throat Respiratory: Denies cough or shortness of breath Cardiovascular: Denies chest pain or edema GI: Complains of generalized abdominal pain, nausea, vomiting,. Denies bloody stools or diarrhea : Denies dysuria Musculoskeletal: Denies back pain or joint pain Integument: Denies rash Neurologic: Denies headache, focal weakness or sensory changes Endocrine: Denies polyuria or polydipsia Lymphatic: Denies swollen glands Psychiatric: Denies depression or anxiety Family History: Family History: Noncontributory presentation Current Medications: Current Meds: Current Medications Medications (Trade) Dose Ordered Sig/Tim Start Time Stop Time Status Last Admin Dose Admin Famotidine (Pepcid Vial) 20 mg 1X ONCE 11/10/21 20:30 11/10/21 20:31 11/10/21 20:21 20 MG Lactated Ringer's 1,000 ml @ 1,000 mls/hr 1X ONCE 11/10/21 20:30 11/10/21 21:29 11/10/21 20:23 1,000 MLS/HR Ondansetron HCl (Zofran) 8 mg 1X ONCE 11/10/21 20:30 11/10/21 20:31 11/10/21 20:21 8 MG Allergies: Allergies: Allergies Coded Allergies Type Severity Reaction Last Updated Verified acetaminophen Adverse Reaction Intermediate Nausea and Vomiting 06/09/21 No oxycodone Adverse Reaction Intermediate Nausea and Vomiting 06/09/21 No Physical Exam: PE: Constitutional: Moderate acute distress, non-toxic appearance. [] HENT: Normocephalic, atraumatic, bilateral external ears normal, oropharynx moist, no oral exudates, nose normal. [] Eyes: PERRLA, EOMI, conjunctiva normal, no discharge. [] Neck: Normal range of motion, no tenderness, supple, no stridor. [] Cardiovascular:Heart rate regular rhythm, no murmur [] Lungs & Thorax: Bilateral breath sounds clear to auscultation [] lung resection scar Abdomen: Bowel sounds hyperactive soft, generalized tenderness, no masses, no pulsatile masses. No focal areas of rebound. Old surgery scars Skin: Warm, dry, no erythema, no rash. [] Back: No tenderness, no CVA tenderness. [] Extremities: No tenderness, no cyanosis, no clubbing, ROM intact, no edema. No cording. No psoas sign. Neurologic: Alert and oriented X 3, normal motor function, normal sensory function, no focal deficits noted. [] Psychologic: Affect anxious, judgement normal, mood normal. [] Current Patient Data: Vital Signs: Vital Signs Date Time Temp Pulse Resp B/P (MAP) Pulse Ox O2 Delivery O2 Flow Rate FiO2 11/10/21 20:06 98.8 98 18 115/55 (75) 96 Room Air EKG: EKG: [] Radiology/Procedures: Radiology/Procedures: [][address] [address] IMAGING REPORT Signed PATIENT: ERIN MONTIELCOUNT: [id number] : 1980 LOCATION: ER AGE: 41 SEX: M EXAM STATUS: DEP ER ORD. PHYSICIAN: VITO REECE MD REASON: pain PROCEDURE: ACUTE ABDOMEN SERIES EXAM: 2 VIEW ABDOMEN WITH ONE VIEW CHEST. HISTORY: Pain. COMPARISON: 08/09/2019. FINDINGS: A frontal view of the chest and supine/upright views of the abdomen are obtained. There are surgical clips in the right inferior hilum with right basilar atelectasis. There are no confluent infiltrates. There is no pneumothorax or pleural effusion. The heart is not enlarged. There is no pneumoperitoneum. There are no distended small bowel loops or significant air-fluid levels. There is gas distally. Cholecystectomy clips are noted. IMPRESSION: 1. Postsurgical right basilar volume loss. No confluent infiltrates. 2. No evidence of obstruction. Electronically signed by: Jarrett Avendano MD (11/11/2021 12:07 AM) [facility] DICTATED AND SIGNED BY: NOY AVENDANO MD DATE: 11/11/215 CC: VITO REECE MD; KIEL NUGENT MD ~ Heart Score: C/O Chest Pain: N/A Risk Factors: Risk Factors: DM, Current or recent (<one month) smoker, HTN, HLP, family history of CAD, obesity. Risk Scores: Score 0 - 3: 2.5% MACE over next 6 weeks - Discharge Home Score 4 - 6: 20.3% MACE over next 6 weeks - Admit for Clinical Observation Score 7 - 10: 72.7% MACE over next 6 weeks - Early Invasive Strategies Course & Med Decision Making: Course & Med Decision Making Pertinent Labs and Imaging studies reviewed. (See chart for details) Patient stay on clear fluid diet for the next 24 to 48 hours. No solids. No milk products. Stay on clear fluids to allow bowel rest. Push fluids such as apple juice, grape juice, Gatorade, popsicles, 7-Up, césar lyle etc. sweet tea. Patient keep follow-up with Dr. Sam Nugent review ED record. Patient take Zofran 8 mg up to 4 times a day for active vomiting. Patient return if any concerns. Tylenol and ibuprofen for discomfort. Impression; 1. Acute gastroenteritis-suspect viral 2. Elevated monocyte 12 3. ALT 74 [] Coby Disclaimer: Dragcathie Disclaimer: This electronic medical record was generated, in whole or in part, using a voice recognition dictation system. Departure Departure: Referrals: KIEL NUGENT MD (PCP) Coby Disclaimer This chart was dictated in whole or in part using Voice Recognition software in a busy, high-work load, and often noisy Emergency Department environment. It may contain unintended and wholly unrecognized errors or omissions. VITO REECE MD November 10, 2021 20:26
[2021-11-10] MEDS ORDERED: ONDANSETRON PF 4 MG/2 ML VIAL. IVP ONE (20:30)
[2021-11-10] MEDS ORDERED: IV RINGERS SOLUTION,LACTATED 1,000 ML IV ONE ×2 (20:30→20:45)
[2021-11-10] MEDS ORDERED: FAMOTIDINE 20 MG/2 ML VIAL IVP ONE ×2 (20:30→21:15)
[2021-11-10 20:50] LABS: BASO % 1 % (0-3); EOS % 1 % (0-3); HEMATOCRIT 43.5 % (39.0-53.0); HEMOGLOBIN 14.8 g/dL (13.0-17.5); LYMPH # 0.5 x10^3/uL (1.0-4.8); LYMPH % 6 % (24-48); MEAN CORPUSCULAR HEMOGLOBIN 30 pg (25-35); MEAN CORPUSCULAR HGB CONC 34 g/dL (31-37); MEAN CORPUSCULAR VOLUME 87 fL (79-100); MONO # 0.9 x10^3/uL (0.0-1.1); MONO % 12 % (0-9); NEUT # 5.8 x10^3uL (1.8-7.7); NEUT % 80 % (31-73); PLATELET COUNT 257 x10^3/uL (140-400); RED BLOOD COUNT 4.99 x10^6/uL (4.30-5.70); RED CELL DISTRIBUTION WIDTH 13.5 % (11.5-14.5); WHITE BLOOD COUNT 7.3 x10^3/uL (4.0-11.0)
[2021-11-10 20:58] LABS: CALCIUM 9.3 mg/dL (8.5-10.1); GFR 81.9
[2021-11-10] MEDS ORDERED: KETOROLAC 30 MG/ML VIAL. IVP ONE (21:00)
[2021-11-10 21:04] LABS: ALBUMIN 3.7 g/dL (3.4-5.0); DIRECT BILIRUBIN 0.2 mg/dL (0.0-0.2); TOTAL BILIRUBIN 0.7 mg/dL (0.2-1.0); TOTAL PROTEIN 7.1 g/dL (6.4-8.2)
[2021-11-10] MEDS ORDERED: PROCHLORPERAZINE 10 MG/2 ML VIAL. IV ONE (21:15)
[2021-11-10] MEDS ORDERED: diphenhydrAMINE 50 MG/ML VIAL IVP ONE (21:15)
[2021-11-10] MEDS ORDERED: MAGNESIUM HYDROXIDE 2,400 MG/30 ML ORAL.SUSP. ONE (22:27)
[2021-11-10] MEDS ORDERED: MAGNESIUM HYDROXIDE 2,400 MG/30 ML ORAL.SUSP. PO ONE (22:30)
[2021-11-10 22:37] VITALS: BP 169/87
--- NOTE | 2021-11-11 00:10 | RAD ---
EXAM: 2 VIEW ABDOMEN WITH ONE VIEW CHEST. HISTORY: Pain. COMPARISON: 08/09/2019. FINDINGS: A frontal view of the chest and supine/upright views of the abdomen are obtained. There are surgical clips in the right inferior hilum with right basilar atelectasis. There are no con fluent infiltrates. There is no pneumothorax or pleural effusion. The heart is not enlarged. There is no pneumoperitoneum. There are no distended small bowel loops or significant air-fluid level s. There is gas distally. Cholecystectomy clips are noted. IMPRESSION: 1. Postsurgical right basilar volume loss. No confluent infiltrates. 2. No evidence of obstruction. Electronically signed by: Jarrett Avendano MD (11/11/2021 12:07 AM) [facility]
== END 2021-11-10 22:38 | disposition home or self-care (01) ==
LOC: ER 19:16
DX: K52.9 Noninfective gastroenteritis and colitis, unspecified (principal); D72.821 Monocytosis (symptomatic); Z90.49 Acquired absence of other specified parts of digestive tract; Z88.5 Allergy status to narcotic agent; Z88.6 Allergy status to analgesic agent
CPT/HCPCS: 36415; 74022; 80048; 80076; 82150; 82550; 83690; 84484; 85025; 85610; 85730; 86705; 86709; 86803; 87340; 96361; 96374; 96375; 99284; J0780; J1200; J1885; J2405; J3490; J7120